=== PATIENT | male | born 1960 ===

== ENCOUNTER → 2019-08-13 | Outpatient (CLI) | payer OTHER ==
--- NOTE | 2019-08-13 12:06 | KCIC ---
EXAM: Lumbar spine, 5 views. HISTORY: Acute pain. COMPARISON: None. FINDINGS: 5 views of the lumbar spine are obtained. There is no significant listhesis. The vertebral bodies are normal in height. There is degenerative endplate remodeling at all levels. There is disc space narrowing and facet arthropathy predominantly at the lumbosacral junction. There are several endplate Schmorl's nodes. IMPRESSION: 1. Multilevel degenerative change, primarily at the lumbosacral junction. 2. No acute osseous finding. Electronically signed by: Ketty Rojas MD (08/13/2019 12:02 PM) [facility]
== END ==
LOC: KCIC 11:24
PROVIDERS: ATTEND Family Medicine
DX: M47.817 Spondylosis without myelopathy or radiculopathy, lumbosacral region (principal); M51.47 Schmorl's nodes, lumbosacral region
CPT/HCPCS: 72110